=== PATIENT | female | born 1970 | race Hispanic/Latino ===

== ENCOUNTER 2025-03-06 13:52 | Emergency (ER) | payer SELFPAY ==
[~2025-03-06] VITALS: Ht 154.9 cm; Wt 104.3 kg
--- NOTE | 2025-03-06 14:13 | ERN ---
ED Note History of Present Illness Stated Complaint: LT KNEE PAIN Chief Complaint: Knee Injury/Swelling Time Seen by MD: 13:59 Dictation: PATIENT IS A 54-YEAR-OLD FEMALE COMING IN TODAY FROM A LOCAL [facility]YSICAL [facility]. 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 SHE HAS BEEN GETTING PHYSICAL THERAPY. SHE STATES SHE WENT TO PHYSICAL THERAPY TODAY AND THEN AFTERWARDS WENT TO SEE THE WORKMEN'S COMP PHYSICIAN. HE ADVISED HER TO GO TO THE HOSPITAL HAVE A DEEP VEIN THRO MBOSIS RULE OUT ON THE LEFT LEG. DISTAL NEUROVASCULAR CMS INTACT. NEGATIVE HOMANS SIGN DISTAL NEUROVASCULAR CMS INTACT TO LIGHT Allergies: Coded Allergies: sulfamethoxazole (Unverified Allergy, Unknown, RASH, 03/06/25) Past Medical History Past Medical History: No Pertinent History Surgical History: Surgical History Other: LT KNEE SX, BACK SX, BILAT ANKLE SX History: Not Applicable RN Note Reviewed/Agreed w/PFSH: Yes Review of System Dictation CONSTITUTIONAL: NEGATIVE EXCEPT FOR HPI HEAD/FACE: NEGATIVE EXCEPT FOR HPI EENT: NEGATIVE EXCEPT FOR HPI RESPIRATORY: NEGATIVE EXCEPT FOR HPI GASTROINTESTINAL/ABDOMINAL: NEGATIVE EXCEPT FOR HPI GENITOURINARY: NEGATIVE EXCEPT FOR HPI MUSCULOSKELETAL: NEGATIVE EXCEPT FOR HPI LEFT LEG AND CALF PAIN INTEGUMENTARY: NEGATIVE EXCEPT FOR HPI NEUROLOGICAL/PSYCH: NEGATIVE EXCEPT FOR HPI HEMATOLOGIC/LYMPHATIC: NEGATIVE EXCEPT FOR HPI ALL SYSTEMS NEGATIVE, EXCEPT NOTED ABOVE. 13 POINT REVIEW OF SYSTEMS ASSESSED AND ALL NEGATIVE EXCEPT FOR ABOVE. Initial Vital Sign VS Vital Signs Date Time Temp Pulse Resp B/P (MAP) Pulse Ox O2 Delivery O2 Flow Rate FiO2 03/06/25 13:55 98.1 74 15 133/92 99 Room Air 0 03/06/25 14:14 21 Physical Exam Dictation VITAL SIGNS REVIEWED GENERAL APPEARANCE: ALERT, ORIENTED X 3, NO ACUTE DISTRESS, WELL DEVELOPED, NOURISHED. OBESE HEAD AND FACE: NON-TRAUMATIC. EYES: PERRL, PINK CONJUNCTIVAS, EYELID NO TRAUMA, ANTERIOR CHAMBER WITH ARCUS SENILIS. EARS: PINNAS INTACT AND NO SIGNS OF TRAUMA OR ERYTHEMA EAR CANALS CLEAR AND NO DISCHARGE TM NO ERYTHEMA NOSE: NO DISCHARGE, NO BLEEDING. OROPHARYNX: MOUTH NORMAL, TONGUE PINK, PHARYNX CLEAR,NO ERYTHEMA, TONSILS NO EXUDATES, NO ABSCESSES NOTED, MUCOUS MEMBRANE MOIST NECK: SUPPLE, NON-TENDER, NO THYROMEGALY, NO MASSES, NO JVD, NO BRUITS BREAST:DEFERRED CHEST:NO TENDERNESS, NO CREPITUS, NO PARADOXICAL MOVEMENT, NO RETRACTIONS LUNGS:CLEAR, WELL-VENTILATED, SYMMETRIC, NO RALES, NO WHEEZING, NO RHONCHI, NO STRIDOR, GOOD BREATH SOUNDS BILATERALLY HEART: REGULAR RATE, REGULAR RHYTHM, NO MURMUR, NO GALLOPS VASCULAR: NO PERIPHERAL EDEMA, ABDOMEN: SOFT, POSITIVE BOWEL SOUNDS, NONDISTENDED, NO GUARDING, NONTENDER, NO REBOUND, NO MASSES NO HEPATOMEGALY, NO SPLENOMEGALY, NO CLEMENTS'S SIGN, NO HERNIAS. RECTAL: DEFERRED GENITAL: DEFERRED NEUROLOGICAL: NORMAL SPEECH, MOTOR FUNCTION INTACT, SENSORY FUNCTION INTACT MUSCULOSKELETAL: NECK NONTENDER, FULL RANGE OF MOTION, BACK NONTENDER, FULL RANGE OF MOTION, EXTREMITIES: NONTENDER, FULL RANGE OF MOTION MILD LEFT CALF TENDERNESS. NO SWELLING NEGATIVE HOMANS SIGN. DISTAL NEUROVASCULAR CMS INTACT. NO ERYTHEMA SKIN: COLOR PINK, DRY, NO TURGOR, NO RASH, NO LACERATIONS, NO ABRASIONS, NO CONTUSIONS. LYMPHATIC: DEFERRED Results (Laboratory/Radiology) Laboratory/Radiology 1445/DOPPLER ULTRASOUND LEFT LEG DEMONSTRATES SMALL SARAVIA'S CYST, NEGATIVE FOR DVT Labs Reviewed?: Yes ED Course ED Course Orders Procedure Category Date Status Time Us Venous Doppler US 03/06/25 Taken Unilateral 14:10 Vital Signs Date Time Temp Pulse Resp B/P (MAP) Pulse Ox O2 Delivery O2 Flow Rate FiO2 03/06/25 14:14 98.2 70 16 146/84 98 Room Air* 0 21 03/06/25 13:55 98.1 74 15 133/92 99 Room Air 0 Medical Decision Making [facility] 1445/MEDICAL DECISION-MAKING BASED ON ULTRASOUND DOPPLER OF LEFT LEG TO RULE OUT DVT NEGATIVE DVT ON DOPPLER PATIENT HAS SMALL SARAVIA'S CYST ADVISED TO FOLLOW BACK UP WITH HER WORKMAN'S COMP PHYSICIAN FOR FURTHER EVALUATION AND TREATMENT DX & DISP Disposition: Discharge Departure Impression: Primary Impression: Synovial cyst of popliteal space [Saravia], left knee Additional Impression: Chronic pain of left knee Condition: Stable Additional Instructions: FOLLOW-UP WITH PRIMARY CARE PROVIDER IN 1 TO 2 DAYS. TAKE MEDICATIONS DIRECTED HERE IN THE EMERGENCY ROOM. OKAY TO CONTINUE HOME MEDICATIONS UNLESS OTHERWISE DISCUSSED DURING YOUR VISIT IN THE EMERGENCY ROOM TODAY. RETURN TO YOUR NEAREST EMERGENCY ROOM IF SYMPTOMS WORSEN OR IF THERE IS NO IMPROVEMENT. CALL 911 IF YOU NEED IMMEDIATE ASSISTANCE. TAKE TYLENOL OR MOTRIN [id number] NEEDED AND IF NO CONTRAINDICATIONS ARE PRESENT. INCREASE ORAL HYDRATION. A WOUND CULTURE OR URINE CULTURE WAS ORDERED HERE IN THE EMERGENCY ROOM DEPARTMENT PLEASE FOLLOW-UP WITH PRIMARY CARE PROVIDER AND ADVISE THEM TO GET REPEAT PORTS FROM OUR FACILITY. IF YOU HAD ANY BRETT WRAP/SPLINTS THAT WERE APPLIED HERE, PLEASE DO NOT REMOVE THEM UNTIL YOU SEE YOUR PRIMARY CARE OR SPECIALTY. CONTINUE ALL MEDICATIONS AND TREATMENTS FROM YOUR WORKMEN'S COMP PHYSICIAN AND SEE HIM TODAY OR TOMORROW FOR FOLLOW UP AND MANAGEMENT. Referrals: SELF,REFERRAL (PCP) Time of Disposition: 14:45 I have reviewed the case, and I agree with, Diagnosis and Plan DIANE BRICEP Mar 06, 2025 14:13
[2025-03-06 14:14] VITALS: BP 146/84; PULSE 70; RESP 16; TEMP 98.3; O2SAT 98
--- NOTE | 2025-03-06 14:55 | HMCIMG ---
EXAM: US for Deep Venous Thrombosis, left Lower Extremity. CLINICAL HISTORY: Leg Pain and Swelling TECHNIQUE: Real-time ultrasound scan of the veins of the left lower extremity with color Doppler flow, spectral waveform analysis and compression. COMPARISON: None provided. FINDINGS: DEEP VEINS: The common femoral, superficial femoral, and popliteal veins are echolucent and compressible. There is normal colour Doppler flow throughout. The visualized calf veins appear patent. SOFT TISSUES: Saravia's cyst measuring 3.4 x 1.8 x 2.3 cm. IMPRESSION: 1. No evidence of deep venous thrombosis in the left lower extremity. 2. Saravia's cyst measuring 3.4 x 1.8 x 2.3 cm. /Aundrea
== END 2025-03-06 14:59 | disposition home or self-care (01) ==
LOC: EDH 13:52
DX: M71.22 Synovial cyst of popliteal space [Baker], left knee (principal); G89.29 Other chronic pain; M25.562 Pain in left knee; Z88.2 Allergy status to sulfonamides; Z98.890 Other specified postprocedural states
CPT/HCPCS: 93971; 99284